=== PATIENT | male | born 1965 | race Caucasian/White ===

== ENCOUNTER → 2017-03-27 | Emergency (ER) | payer BC ==
[~2017-03-27] VITALS: Ht 180.3 cm; Wt 90.9 kg
[~2017-03-27] MED LIST: ADDE10CA3 PO
[2017-03-27 07:06] VITALS: BP 156/105
== END | disposition left against medical advice (07) ==
LOC: M ED 07:03
DX: Z53.21 Procedure and treatment not carried out due to patient leaving prior to being seen by health care provider (principal)